=== PATIENT | female | born 1980 | race Caucasian/White ===

== ENCOUNTER → 2023-10-25 | Outpatient (CLI) | payer BC ==
[~2023-10-25] MED LIST: FOLIC ACID 40400 MCG PO; MACROBID 1100 MG/CAP; PATADAY 2.5 ML2.5 ML OP; PRENATAL1 TA5 PO; [UNRECOGNIZED DRUG - CODE]
== END ==
LOC: MC.RAD 07:27
DX: Z12.31 Encounter for screening mammogram for malignant neoplasm of breast (principal)